=== PATIENT | female | born 1980 | race Caucasian/White ===

== ENCOUNTER 2018-05-29 17:07 | Emergency (ER) | payer OTHER ==
[2018-05-29] MEDS ORDERED: Sodium Chloride 0.9% 10 ML Syringe FLUSH PRN (17:50)
[2018-05-29] MEDS ORDERED: Ketorolac 30 MG/ML SDV IVPUSH ONE (17:50)
[2018-05-29] MEDS ORDERED: Alum Hydrox/Mag Hydrox/Simeth 30 ML, Lidocaine 2% 15 ML PO ONE ×2 (17:51)
--- NOTE | 2018-05-29 17:53 | EDM.PDOC ---
ED HPI GENERAL MEDICAL PROBLEM - General Chief Complaint: Chest Pain Stated Complaint: HIGH BLOOD PRESSURE/CHEST PAIN Time Seen by Provider: 05/29/18 17:27 Source of Information: Reports: Patient History Limitations: Reports: No Limitations - History of Present Illness INITIAL COMMENTS - FREE TEXT/NARRATIVE: 37-year-old incarcerated female with a history of schizophrenia and methamphetamine IV drug use. Presents to the ED complaining of substernal chest discomfort worse with taking a deep breath and movement. States this started earlier today with reading a book. States with worrying the discomfort worsened and radiated to her upper back. Symptoms have almost completely resolved with admission to the ED. States that at time she's had some dizziness to which she relates to her high blood pressure and increased worrying. She's had a headache described as frontal bilateral retro-orbital with no vision changes. Headache was gradual with onset. No cough, sinus congestion, SOB, sore throat, and stiff neck. No abdominal pain. No pain with urination. No diarrhea or blood in her stool. No nausea or vomiting. She has no rash present. She has a history of hepatitis C which is chronic for the past 20 years. She's been incarcerated for the past 2 months last used methamphetamines 10 months ago. She denies any complaints at this time. States earlier today she had temperature 100.7 did not receive any meds. She was afebrile with admission. Blood pressure is quite elevated 199/105 with admission but the patient was quite anxious per nursing staff. ON examination patients BP is 169/95. Chest Pain Score (Numeric/FACES): 3 Headache Pain Score (Numeric/FACES): 7 - Related Data Allergies Allergy/AdvReac Type Severity Reaction Status Date / Time No Known Allergies Allergy Verified 05/29/18 17:16 Home Meds: Home Meds Escitalopram [Lexapro] 10 mg PO DAILY 05/29/18 [History] Omeprazole Magnesium [Prilosec Otc] 40 mg PO QAM #28 tablet. 05/29/18 [Rx] QUEtiapine Fumarate [Seroquel] 50 mg PO BEDTIME 05/29/18 [History] risperiDONE [Risperdal] 0.5 mg PO BID 05/29/18 [History] Past Medical History Psychiatric History: Reports: Anxiety, Depression, PTSD, Schizophrenia - Infectious Disease History Infectious Disease History: Reports: Hepatitis C Social & Family History - Tobacco Use Smoking Status *Q: Former Smoker Years of Tobacco use: 23 Packs/Tins Daily: 1 Used Tobacco, but Quit: Yes Month/Year Tobacco Last Used: nay - Recreational Drug Use Recreational Drug Use: Yes Drug Use in Last 12 Months: Yes Recreational Drug Type: Reports: Methamphetamine ED ROS GENERAL - Review of Systems Review Of Systems: ROS reveals no pertinent complaints other than HPI. ED EXAM, GENERAL - Physical Exam Exam: See Below Exam Limited By: No Limitations General Appearance: Alert, WD/WN, No Apparent Distress Eye Exam: Bilateral Eye: EOMI, Normal Inspection, PERRL Ears: Hearing Grossly Normal Nose: Normal Inspection, Normal Mucosa, No Blood Throat/Mouth: Normal Inspection, Normal Voice, No Airway Compromise Neck: Normal Inspection, Supple, Non-Tender, Full Range of Motion Respiratory/Chest: No Respiratory Distress, Lungs Clear, Normal Breath Sounds, No Accessory Muscle Use, Chest Non-Tender Cardiovascular: Normal Peripheral Pulses, Regular Rate, Rhythm, No Murmur ( Obvious) Peripheral Pulses: 2+: Radial (L), Radial (R) GI/Abdominal: Normal Bowel Sounds, Soft, Non-Tender, No Organomegaly, No Distention Back Exam: Normal Inspection Extremities: Normal Inspection, Normal Range of Motion, Non-Tender, No Pedal Edema, Normal Capillary Refill Neurological: Alert, Oriented, CN II-XII Intact, Normal Cognition, No Motor/ Sensory Deficits Psychiatric: Normal Affect, Normal Mood Skin Exam: Warm, Dry, Intact, Normal Color Course - Vital Signs Last Recorded V/S: Last Vital Signs Temp 98.8 F 05/29/18 17:18 Pulse 73 05/29/18 17:18 Resp 18 05/29/18 17:18 BP 199/105 H 05/29/18 17:18 Pulse Ox 100 05/29/18 17:18 - Orders/Labs/Meds Orders: Active Orders 24 hr Category Date Time Status EKG Documentation Completion [RC] STAT Care 05/29/18 17:50 Active Peripheral IV Care [RC] . DIRECTED Care 05/29/18 17:50 Active Chest 1V Frontal [CR] Stat Exams 05/29/18 17:50 Taken HCG QUALITATIVE,URINE [URCHEM] Stat Lab 05/29/18 17:50 Ordered Peripheral IV Insertion Adult [OM.PC] Routine Oth 05/29/18 17:50 Ordered Labs: Laboratory Tests 05/29/18 05/29/18 05/29/18 Range/Units 17:50 17:50 18:15 WBC 7.29 (3.98-10.04) K/mm3 RBC 4.59 (3.98-5.22) M/mm3 Hgb 14.1 (11.2-15.7) gm/L Hct 41.0 (34.1-44.9) % MCV 89.3 (79.4-94.8) fl MCH 30.7 (25.6-32.2) pg MCHC 34.4 (32.2-35.5) g/dl RDW Std Deviation 40.9 (36.4-46.3) fL Plt Count 179 L (182-369) K/mm3 MPV 9.7 (9.4-12.3) fl Neutrophils % (Manual) 78 H (40-60) % Band Neutrophils % 0 (0-10) % Lymphocytes % (Manual) 18 L (20-40) % Atypical Lymphs % 0 % Monocytes % (Manual) 3 (2-10) % Eosinophils % (Manual) 1 (0.7-5.8) % Basophils % (Manual) 0 L (0.1-1.2) Toxic Granulation Few Platelet Estimate Adequate RBC Morph Comment Normal Sodium (136-145) mEq/L Potassium (3.5-5.1) mEq/L Chloride (98-107) mEq/L Carbon Dioxide (21-32) mEq/L Anion Gap (5-15) BUN (7-18) mg/dL Creatinine (0.55-1.02) mg/dL Est Cr Clr Drug Dosing mL/min Estimated GFR (MDRD) (>60) mL/min BUN/Creatinine Ratio (14-18) Glucose (74-106) mg/dL Calcium (8.5-10.1) mg/dL Total Bilirubin (0.2-1.0) mg/dL AST (15-37) U/L ALT (14-59) U/L Alkaline Phosphatase (46-116) U/L Troponin I (0.00-0.056) ng/mL C-Reactive Protein (<1.0) mg/dL Total Protein (6.4-8.2) g/dl Albumin (3.4-5.0) g/dl Globulin gm/dL Albumin/Globulin Ratio (1-2) Urine Color Yellow (Yellow) Urine Appearance Clear (Clear) Urine pH 7.5 (5.0-8.0) Ur Specific [place] 1.015 (1.005-1.030) Urine Protein Negative (Negative) Urine Glucose (UA) Negative (Negative) Urine Ketones Negative (Negative) Urine Occult Blood Negative (Negative) Urine Nitrite Negative (Negative) Urine Bilirubin Negative (Negative) Urine Urobilinogen 0.2 (0.2-1.0) Ur Leukocyte Esterase Trace H (Negative) Urine RBC 0-5 (0-5) /hpf Urine WBC 0-5 (0-5) /hpf Ur Epithelial Cells 0-5 (0-5) /hpf Urine Bacteria Occasional (FEW) /hpf Urine Mucus Not seen (FEW) /hpf Urine HCG, Qual Negative (NEGATIVE) 05/29/18 05/29/18 Range/Units 18:15 18:15 WBC (3.98-10.04) K/mm3 RBC (3.98-5.22) M/mm3 Hgb (11.2-15.7) gm/L Hct (34.1-44.9) % MCV (79.4-94.8) fl MCH (25.6-32.2) pg MCHC (32.2-35.5) g/dl RDW Std Deviation (36.4-46.3) fL Plt Count (182-369) K/mm3 MPV (9.4-12.3) fl Neutrophils % (Manual) (40-60) % Band Neutrophils % (0-10) % Lymphocytes % (Manual) (20-40) % Atypical Lymphs % % Monocytes % (Manual) (2-10) % Eosinophils % (Manual) (0.7-5.8) % Basophils % (Manual) (0.1-1.2) Toxic Granulation Platelet Estimate RBC Morph Comment Sodium 142 (136-145) mEq/L Potassium 3.7 (3.5-5.1) mEq/L Chloride 105 (98-107) mEq/L Carbon Dioxide 27 (21-32) mEq/L Anion Gap 13.7 (5-15) BUN 15 (7-18) mg/dL Creatinine 0.8 (0.55-1.02) mg/dL Est Cr Clr Drug Dosing 92.72 mL/min Estimated GFR (MDRD) > 60 (>60) mL/min BUN/Creatinine Ratio 18.8 H (14-18) Glucose 105 (74-106) mg/dL Calcium 8.7 (8.5-10.1) mg/dL Total Bilirubin 0.4 (0.2-1.0) mg/dL AST 31 (15-37) U/L ALT 49 (14-59) U/L Alkaline Phosphatase 46 (46-116) U/L Troponin I < 0.017 (0.00-0.056) ng/mL C-Reactive Protein < 0.2 (<1.0) mg/dL Total Protein 7.8 (6.4-8.2) g/dl Albumin 4.1 (3.4-5.0) g/dl Globulin 3.7 gm/dL Albumin/Globulin Ratio 1.1 (1-2) Urine Color (Yellow) Urine Appearance (Clear) Urine pH (5.0-8.0) Ur Specific [place] (1.005-1.030) Urine Protein (Negative) Urine Glucose (UA) (Negative) Urine Ketones (Negative) Urine Occult Blood (Negative) Urine Nitrite (Negative) Urine Bilirubin (Negative) Urine Urobilinogen (0.2-1.0) Ur Leukocyte Esterase (Negative) Urine RBC (0-5) /hpf Urine WBC (0-5) /hpf Ur Epithelial Cells (0-5) /hpf Urine Bacteria (FEW) /hpf Urine Mucus (FEW) /hpf Urine HCG, Qual (NEGATIVE) Meds: Medications Discontinued Medications Generic Name Dose Route Start Last Admin Trade Name Freq PRN Reason Stop Dose Admin Acetaminophen 975 mg 05/29/18 19:42 05/29/18 19:53 Tylenol PO 05/29/18 19:43 975 mg NOW ONE Administration Al Hydroxide/Mg Hydroxide 30 0 ml 05/29/18 17:51 05/29/18 18:03 ml/ Lidocaine HCl 15 ml PO 05/29/18 17:52 45 ml ONETIME ONE Administration Ketorolac Tromethamine 30 mg 05/29/18 17:50 05/29/18 18:28 Toradol IVPUSH 05/29/18 17:51 30 mg ONETIME ONE Administration Sodium Chloride 10 ml 05/29/18 17:50 Saline Flush FLUSH ASDIRECTED PRN Keep Vein Open - Re-Assessments/Exams Free Text/Narrative Re-Assessment/Exam: IV established with Toradol 30 mg IVP. GI cocktail ordered. Initial labs and studies will include: HCG, CBC, CMP, CRP, and UA. Chest x-ray and EKG will be obtained. Labs reviewed: CBC essentially normal minus low platelet count of 179. She panel was essentially normal. CRP within normal limits. UA negative. HCG negative. Chest x-ray was essentially normal. Reviewed with Dr. Hernandez. EKG sinus rhythm at a rate of 72. New Q wave in leads V1 and V2. Consider old anterior septal [place]. QT borderline prolonged. No signs of ischemia. Troponin was negative. Reassessment, patient's feeling better. All chest discomfort and GI symptoms have resolved. Suspect patients chest discomfort may have been associated to acid reflux and/or chest wall in origin. She admits pain had worsened with taking a deep breath. Pain was relieved with the gi cocktail/toradol. CP discomfort not worse with exertion. Headache persists. Ordered Tylenol and 975 mg by mouth. She is ready be discharged home.The patient remained hemodynamically stable while under my care in the E.D. I discussed the concerning symptoms for which to return to the E.D. with the patient. The patient verbalized understanding. All questions were answered. Departure - Departure Time of Disposition: 20:27 Disposition: Home, Self-Care 01 Condition: Good Clinical Impression: Chest wall pain, Atypical chest pain, Paroxysmal supraventricular tachycardia HTN (hypertension) Qualifiers: Hypertension type: unspecified Qualified Code(s): I10 - Essential (primary) hypertension Headache Qualifiers: Headache type: unspecified Headache chronicity pattern: episodic headache Intractability: not intractable Qualified Code(s): R51 - Headache Prescriptions: Omeprazole Magnesium [Prilosec Otc] 40 mg PO QAM #28 tablet. Instructions: Chest Wall Pain, [id number], Hypertension, [id number] Referrals: Lizbeth Blanca PA-C [Primary Care Provider] - Forms: ED Department Discharge Additional Instructions: Blood pressure was elevated with admission to the E.D. Decreased over a short period of time. I suspect headache may have been contributed as the result of the hypertension. Continue have your blood pressures checked regularly by clinic staff. Take all your medications as prescribed. Modification of medications may be required and or starting you on a blood pressure medication maybe of benefit. Chest wall discomfort was relieved with a GI cocktail. Suspect this more likely related to gastritis/esophagitis. Thus will have you take Prilosec 40 mg every day for the next 2 weeks. Refrain from any spicy foods , caffeinated beverages, coffee, chocolate, eating or drinking within 4 hours of going to bed. Please monitor for any new or worsening symptoms. Follow-up with clinic provider for reevaluation. Return to the ED if you develop any new or worsening symptoms. - My Orders Last 24 Hours: My Active Orders 05/29/18 17:50 EKG Documentation Completion [RC] STAT Peripheral IV Care [RC] . DIRECTED Chest 1V Frontal [CR] Stat HCG QUALITATIVE,URINE [URCHEM] Stat Peripheral IV Insertion Adult [OM.PC] Routine - Assessment/Plan Last 24 Hours: My Active Orders 05/29/18 17:50 EKG Documentation Completion [RC] STAT Peripheral IV Care [RC] . DIRECTED Chest 1V Frontal [CR] Stat HCG QUALITATIVE,URINE [URCHEM] Stat Peripheral IV Insertion Adult [OM.PC] Routine
[2018-05-29] MEDS ORDERED: Acetaminophen 325 MG Tab PO ONE (19:42)
--- NOTE | 2018-06-01 09:14 | CR ---
Chest: Portable view of the chest was obtained. Comparison: No prior chest x-ray. Heart size and mediastinum are within normal limits. Lungs are clear without acute parenchymal change. Bony structures are grossly intact. Impression: 1. Nothing acute is seen on portable chest x-ray. Diagnostic code #1
== END 2018-05-29 20:45 | disposition home or self-care (01) ==
LOC: JD.ED 17:07
DX: R07.2 Precordial pain (principal); I47.1 Supraventricular tachycardia; I10 Essential (primary) hypertension; F20.9 Schizophrenia, unspecified; F41.9 Anxiety disorder, unspecified; F32.9 Major depressive disorder, single episode, unspecified; Z87.891 Personal history of nicotine dependence; Z79.899 Other long term (current) drug therapy
CPT/HCPCS: 36415; 71045; 80053; 81001; 81025; 84484; 85007; 85027; 86140; 93005; 96374; 99285; A9270; J1885; 93010; 99284

== ENCOUNTER 2018-10-26 19:30 | Emergency (ER) | payer OTHER ==
[2018-10-26] MEDS ORDERED: Sodium Chloride 0.9% 10 ML Syringe FLUSH PRN (19:45)
[2018-10-26] MEDS ORDERED: Sodium Chloride 0.9% 1,000 ML IV SCH (19:45)
[2018-10-26] MEDS ORDERED: Ondansetron 4 MG/2 ML SDV IVPUSH ONE (19:53)
--- NOTE | 2018-10-26 20:43 | EDM.PDOCBH ---
ED HPI GENERAL MEDICAL PROBLEM - General Chief Complaint: Drug or Alcohol Abuse Stated Complaint: SENT [facility]IC[facility] Time Seen by Provider: 10/26/18 19:36 Source of Information: Reports: Patient History Limitations: Reports: No Limitations - History of Present Illness INITIAL COMMENTS - FREE TEXT/NARRATIVE: The patient presents because of a tylenol overdose. She is an inmate at the [facility] in [place]. She was feeling depressed. She took them tonight in a suicide attempt. She has been waiting for some therapy and it was delayed so she took the pills. She took 15 to 20 extra strength tylenol that are 500mgs. She has some nausea now. She has no fever, chills, cough, congestion, runny nose, chest pain or shortness of breath. She took the meds at 7pm. She did overdose last month on the . She does have depression and schizophrenia. Onset: Sudden Duration: Minutes: (7pm tonight) Severity: Moderate Improves with: Reports: None Worsens with: Reports: None Associated Symptoms: Reports: Nausea/Vomiting. Denies: Chest Pain, Cough, Fever /Chills, Headaches, Shortness of Breath - Related Data Allergies Allergy/AdvReac Type Severity Reaction Status Date / Time erythromycin base Allergy Hives Verified 10/26/18 19:37 Home Meds: Home Meds QUEtiapine Fumarate [Seroquel] 50 mg PO BEDTIME 05/29/18 [History] risperiDONE [Risperdal] 5 mg PO BEDTIME 05/29/18 [History] FLUoxetine HCl [Prozac] 20 mg PO BEDTIME 09/21/18 [History] Ibuprofen [Ibu] 600 mg PO TID PRN 09/21/18 [History] Omeprazole Magnesium [Prilosec Otc] 20 mg PO QAM 09/21/18 [History] Bisacodyl [Dulcolax] 10 mg PO DAILY PRN 10/26/18 [History] Magnesium Citrate [Citrate of Magnesia] 1 dose PO ASDIRECTED PRN 10/26/18 [ History] Magnesium Hydroxide [Milk of Magnesia] 30 ml PO ASDIRECTED PRN 10/26/18 [History ] Past Medical History Psychiatric History: Reports: Anxiety, Depression, PTSD, Schizophrenia, Suicide Attempt, Suicidal Ideation - Infectious Disease History Infectious Disease History: Reports: Hepatitis C Social & Family History - Tobacco Use Smoking Status *Q: Former Smoker Packs/Tins Daily: 1 Used Tobacco, but Quit: Yes Month/Year Tobacco Last Used: 2 years ago - Caffeine Use Caffeine Use: Reports: Coffee - Recreational Drug Use Recreational Drug Use: Yes Drug Use in Last 12 Months: No Recreational Drug Type: Reports: Methamphetamine ED ROS GENERAL - Review of Systems Review Of Systems: See Below Constitutional: Reports: No Symptoms HEENT: Reports: No Symptoms Respiratory: Reports: No Symptoms Cardiovascular: Reports: No Symptoms Endocrine: Reports: No Symptoms GI/Abdominal: Reports: Nausea. Denies: Abdominal Pain, Diarrhea, Vomiting : Reports: No Symptoms Musculoskeletal: Reports: No Symptoms Skin: Reports: No Symptoms ED EXAM, BEHAVIORAL HEALTH - Physical Exam Exam: See Below Exam Limited By: No Limitations General Appearance: Alert, No Apparent Distress Ears: Normal External Exam Nose: Normal Inspection Head: Atraumatic, Normocephalic Neck: Normal Inspection Respiratory/Chest: No Respiratory Distress, Lungs Clear, Normal Breath Sounds Cardiovascular: Regular Rate, Rhythm, No Edema, No Murmur GI/Abdominal: Soft, Non-Tender, No Organomegaly, No Mass Back Exam: Normal Inspection EKG INTERPRETATION EKG Date: 10/26/18 Time: 19:59 Rhythm: NSR Rate (Beats/Min): 78 [place]: Normal P-Wave: Present QRS: Normal ST-T: Normal QT: Normal COURSE, BEHAVIORAL HEALTH COMP - Course Vital Signs: Last Vital Signs Temp 98.2 F 10/26/18 19:35 Pulse 80 10/26/18 19:35 Resp 16 10/26/18 19:35 BP 188/102 H 10/26/18 19:35 Pulse Ox 100 10/26/18 19:35 Orders, Labs, Meds: Active Orders 24 hr Category Date Time Status Cardiac Monitoring [RC] . DIRECTED Care 10/26/18 19:45 Active EKG Documentation Completion [RC] ASDIRECTED Care 10/26/18 19:49 Active Peripheral IV Care [RC] . DIRECTED Care 10/26/18 19:48 Active Sodium Chloride 0.9% [Normal Saline] 1,000 ml Med 10/26/18 19:45 Active IV ASDIRECTED Sodium Chloride 0.9% [Saline Flush] Med 10/26/18 19:45 Active 10 ml FLUSH ASDIRECTED PRN Peripheral IV Insertion Adult [OM.PC] Stat Oth 01/24/19 19:45 Ordered EKG 12 Lead [EK] Stat Ther 10/26/18 19:48 Ordered Medication Orders Sodium Chloride (Normal Saline) 1,000 mls @ 125 mls/hr IV ASDIRECTED ARTUR Last Admin: 10/26/18 20:11 Dose: 125 mls/hr Sodium Chloride (Saline Flush) 10 ml FLUSH ASDIRECTED PRN PRN Reason: Keep Vein Open Last Admin: 10/26/18 20:12 Dose: 10 ml Laboratory Tests 10/26/18 10/26/18 10/26/18 Range/Units 20:20 20:20 20:20 WBC 5.83 (3.98-10.04) K/mm3 RBC 4.00 (3.98-5.22) M/mm3 Hgb 12.4 (11.2-15.7) gm/L Hct 37.7 (34.1-44.9) % MCV 94.3 (79.4-94.8) fl MCH 31.0 (25.6-32.2) pg MCHC 32.9 (32.2-35.5) g/dl RDW Std Deviation 43.9 (36.4-46.3) fL Plt Count 214 (182-369) K/mm3 MPV 9.9 (9.4-12.3) fl Neut % (Auto) 65.0 (34.0-71.1) % Lymph % (Auto) 25.7 (19.3-51.7) % [place] % (Auto) 7.4 (4.7-12.5) % Eos % (Auto) 1.7 (0.7-5.8) Baso % (Auto) 0.2 (0.1-1.2) % Neut # (Auto) 3.79 (1.56-6.13) K/mm3 Lymph # (Auto) 1.50 (1.18-3.74) K/mm3 [place] # (Auto) 0.43 H (0.24-0.36) K/mm3 Eos # (Auto) 0.10 (0.04-0.36) K/mm3 Baso # (Auto) 0.01 (0.01-0.08) K/mm3 Sodium 141 (136-145) mEq/L Potassium 3.7 (3.5-5.1) mEq/L Chloride 106 (98-107) mEq/L Carbon Dioxide 26 (21-32) mEq/L Anion Gap 12.7 (5-15) BUN 17 (7-18) mg/dL Creatinine 0.8 (0.55-1.02) mg/dL Est Cr Clr Drug Dosing 95.24 mL/min Estimated GFR (MDRD) > 60 (>60) mL/min BUN/Creatinine Ratio 21.3 H (14-18) Glucose 126 H (74-106) mg/dL Calcium 9.2 (8.5-10.1) mg/dL Total Bilirubin 0.2 (0.2-1.0) mg/dL AST 26 (15-37) U/L ALT 38 (14-59) U/L Alkaline Phosphatase 39 L (46-116) U/L Total Protein 7.7 (6.4-8.2) g/dl Albumin 4.2 (3.4-5.0) g/dl Globulin 3.5 gm/dL Albumin/Globulin Ratio 1.2 (1-2) Salicylates 1.3 L (2.8-20) mg/dL Urine Opiates Screen (PCNPRO=871) Ur Buprenorphine Scrn (CUTOFF=10) Ur Oxycodone Screen (XYX9TE=786) Urine Methadone Screen (LBYZVR=709) Ur Propoxyphene Screen (QYNPRQ=216) Acetaminophen 101 H (10-30) ug/mL Ur Barbiturates Screen (AFNZQJ=476) Ur Tricyclics Screen (LWZRYF=451) Ur Phencyclidine Scrn (CUTOFF=25) Ur Amphetamine Screen (FZVCHK=782) U Methamphetamines Scrn (KMNKXW=473) U Benzodiazepines Scrn (JFKWXL=435) U Cocaine Metab Screen (VGSIXF=878) U Marijuana (THC) Screen (CUTOFF=50) Ethyl Alcohol 0.00 (0.00) gm% 10/26/18 10/26/18 Range/Units 22:14 23:35 WBC (3.98-10.04) K/mm3 RBC (3.98-5.22) M/mm3 Hgb (11.2-15.7) gm/L Hct (34.1-44.9) % MCV (79.4-94.8) fl MCH (25.6-32.2) pg MCHC (32.2-35.5) g/dl RDW Std Deviation (36.4-46.3) fL Plt Count (182-369) K/mm3 MPV (9.4-12.3) fl Neut % (Auto) (34.0-71.1) % Lymph % (Auto) (19.3-51.7) % [place] % (Auto) (4.7-12.5) % Eos % (Auto) (0.7-5.8) Baso % (Auto) (0.1-1.2) % Neut # (Auto) (1.56-6.13) K/mm3 Lymph # (Auto) (1.18-3.74) K/mm3 [place] # (Auto) (0.24-0.36) K/mm3 Eos # (Auto) (0.04-0.36) K/mm3 Baso # (Auto) (0.01-0.08) K/mm3 Sodium (136-145) mEq/L Potassium (3.5-5.1) mEq/L Chloride (98-107) mEq/L Carbon Dioxide (21-32) mEq/L Anion Gap (5-15) BUN (7-18) mg/dL Creatinine (0.55-1.02) mg/dL Est Cr Clr Drug Dosing mL/min Estimated GFR (MDRD) (>60) mL/min BUN/Creatinine Ratio (14-18) Glucose (74-106) mg/dL Calcium (8.5-10.1) mg/dL Total Bilirubin (0.2-1.0) mg/dL AST (15-37) U/L ALT (14-59) U/L Alkaline Phosphatase (46-116) U/L Total Protein (6.4-8.2) g/dl Albumin (3.4-5.0) g/dl Globulin gm/dL Albumin/Globulin Ratio (1-2) Salicylates (2.8-20) mg/dL Urine Opiates Screen Negative (FVQQQL=579) Ur Buprenorphine Scrn Negative (CUTOFF=10) Ur Oxycodone Screen Negative (FOE9OC=537) Urine Methadone Screen Negative (IRRWYL=614) Ur Propoxyphene Screen Negative (WJOIAB=836) Acetaminophen 45 H (10-30) ug/mL Ur Barbiturates Screen Negative (VTDUNC=178) Ur Tricyclics Screen Negative (AAEBDI=165) Ur Phencyclidine Scrn Negative (CUTOFF=25) Ur Amphetamine Screen Negative (EWJKFI=843) U Methamphetamines Scrn Negative (FWHIEX=697) U Benzodiazepines Scrn Negative (TEUEPM=084) U Cocaine Metab Screen Negative (SFRAXC=909) U Marijuana (THC) Screen Negative (CUTOFF=50) Ethyl Alcohol (0.00) gm% Medications Generic Name Dose Route Start Last Admin Trade Name Freq PRN Reason Stop Dose Admin Sodium Chloride 1,000 mls @ 125 mls/hr 10/26/18 19:45 10/26/18 20:11 Normal Saline IV 125 mls/hr ASDIRECTED ARTUR Administration Sodium Chloride 10 ml 10/26/18 19:45 10/26/18 20:12 Saline Flush FLUSH 10 ml ASDIRECTED PRN Administration Keep Vein Open Discontinued Medications Generic Name Dose Route Start Last Admin Trade Name Freq PRN Reason Stop Dose Admin Ondansetron HCl 4 mg 10/26/18 19:53 10/26/18 20:11 Zofran IVPUSH 10/26/18 19:54 4 mg ONETIME ONE Administration Quetiapine Fumarate 50 mg 10/26/18 21:51 10/26/18 21:57 Seroquel PO 10/26/18 21:52 50 mg ONETIME ONE Administration Re-Assessment/Re-Exam: I ordered an IV NS 1L bolus, zofran 4mg IV, EKG, and labs. I called poison control and they wanted me to check an acetaminophen level at 11pm. I will check it then also. Her CBC look good. Her glucose was elevated at 126. Her liver enzymes were normal. Her acetaminophen level initially was 101. The second one was 45. That is at 4 hours and that is well below the toxic level of 150 at 4 hours. I called poison control back and they said she would be safe for discharge. Her salicylate level was normal. I will discharge her home. Departure - Departure Time of Disposition: 01:10 Disposition: Home, Self-Care 01 Condition: Good Clinical Impression: Suicidal ideation Tylenol overdose Qualifiers: Encounter type: initial encounter Injury intent: intentional self-harm Qualified Code(s): T39.1X2A - Poisoning by 4-Aminophenol derivatives, intentional self-harm, initial encounter - Discharge Information *PRESCRIPTION DRUG MONITORING PROGRAM REVIEWED*: No *COPY OF PRESCRIPTION DRUG MONITORING REPORT IN PATIENT BENJAMIN: No Referrals: PCP,None [Primary Care Provider] - Additional Instructions: Take your prescription medications as prescribed. Please return if you are worse. - My Orders Last 24 Hours: My Active Orders 10/26/18 19:45 Cardiac Monitoring [RC] . DIRECTED Sodium Chloride 0.9% [Normal Saline] 1,000 ml IV ASDIRECTED Sodium Chloride 0.9% [Saline Flush] 10 ml FLUSH ASDIRECTED PRN Peripheral IV Insertion Adult [OM.PC] Stat 10/26/18 19:48 Peripheral IV Care [RC] . DIRECTED EKG 12 Lead [EK] Stat 10/26/18 19:49 EKG Documentation Completion [RC] ASDIRECTED - Assessment/Plan Last 24 Hours: My Active Orders 10/26/18 19:45 Cardiac Monitoring [RC] . DIRECTED Sodium Chloride 0.9% [Normal Saline] 1,000 ml IV ASDIRECTED Sodium Chloride 0.9% [Saline Flush] 10 ml FLUSH ASDIRECTED PRN Peripheral IV Insertion Adult [OM.PC] Stat 10/26/18 19:48 Peripheral IV Care [RC] . DIRECTED EKG 12 Lead [EK] Stat 10/26/18 19:49 EKG Documentation Completion [RC] ASDIRECTED
[2018-10-26 20:44] LABS: ACETAMINOPHEN 101 ug/mL (10-30)
[2018-10-26] MEDS ORDERED: QUEtiapine 25 MG Tab PO ONE (21:51)
== END 2018-10-27 01:15 | disposition home or self-care (01) ==
LOC: JD.ED 19:30
DX: T39.1X2A Poisoning by 4-Aminophenol derivatives, intentional self-harm, initial encounter (principal); F41.9 Anxiety disorder, unspecified; F32.9 Major depressive disorder, single episode, unspecified; Z87.891 Personal history of nicotine dependence; Z88.1 Allergy status to other antibiotic agents; Z79.899 Other long term (current) drug therapy
CPT/HCPCS: 36415; 80053; 80306; 85025; 93005; 96361; 96374; 99285; A9270; G0480; J2405; J7040; 93010; 99284

== ENCOUNTER 2018-11-11 20:39 | Emergency (ER) | payer OTHER ==
--- NOTE | 2018-11-11 21:01 | EDM.PDOC ---
ED HPI GENERAL MEDICAL PROBLEM - General Chief Complaint: General Stated Complaint: OD ON TYLENOL Time Seen by Provider: 11/11/18 20:52 Source of Information: Reports: Patient, Other (marketing officer) History Limitations: Reports: No Limitations - History of Present Illness INITIAL COMMENTS - FREE TEXT/NARRATIVE: This is a 38-year-old female. [facility] [place] She states she took an overdose at 7:30 PM of Tylenol she took 20 tablets of 500 mg. She did this about a week ago and she says that she got the Tylenol this time from another inmate who treated her for coffee. The patient states she is a little queasy but she did not vomit. Due to the fact that she just took the overdose 45 minutes ago I will put down an NG tube and do a gastric lavage to see if we can't get portions of the Tylenol and then will use activated charcoal. I explained to the patient that this is not a desirable way to if that's what she wants to do. She says she is schizophrenic and is the voices inside her head that are telling her to kill herself. She says she takes her medications for the schizophrenia faithfully. She denies any other acute problems or physical symptoms. This would correlate to 135 mg/kg. According to the reference 150 mg/kg is considered toxic limit but we will continue to monitor her levels at 4 hours and determine if she needs full therapy with acetylcysteine. - Related Data Allergies Allergy/AdvReac Type Severity Reaction Status Date / Time erythromycin base Allergy Hives Verified 11/11/18 20:52 Home Meds: Home Meds QUEtiapine Fumarate [Seroquel] 50 mg PO BEDTIME 05/29/18 [History] risperiDONE [Risperdal] 5 mg PO BEDTIME 05/29/18 [History] FLUoxetine HCl [Prozac] 20 mg PO BEDTIME 09/21/18 [History] Omeprazole Magnesium [Prilosec Otc] 20 mg PO QAM 09/21/18 [History] Venlafaxine [Effexor XR] 37.5 mg PO BEDTIME 11/11/18 [History] Past Medical History Psychiatric History: Reports: Anxiety, Depression, PTSD, Schizophrenia, Suicide Attempt, Suicidal Ideation - Infectious Disease History Infectious Disease History: Reports: Hepatitis C Social & Family History - Tobacco Use Smoking Status *Q: Former Smoker Used Tobacco, but Quit: Yes Month/Year Tobacco Last Used: 2 years ago - Caffeine Use Caffeine Use: Reports: Coffee - Recreational Drug Use Recreational Drug Use: Yes Drug Use in Last 12 Months: No Recreational Drug Type: Reports: Methamphetamine ED ROS GENERAL - Review of Systems Review Of Systems: See Below Constitutional: Denies: Fever, Chills HEENT: Reports: No Symptoms Respiratory: Denies: Shortness of Breath, Cough Cardiovascular: Denies: Chest Pain Endocrine: Reports: No Symptoms GI/Abdominal: Reports: Nausea. Denies: Abdominal Pain, Diarrhea, Vomiting : Reports: No Symptoms Musculoskeletal: Reports: No Symptoms Skin: Reports: No Symptoms Neurological: Reports: No Symptoms Psychiatric: Reports: Other (Patient is schizophrenic and states she has auditory hallucinations that are telling her to kill herself) Hematologic/Lymphatic: Reports: No Symptoms ED EXAM, GENERAL - Physical Exam Exam: See Below Exam Limited By: No Limitations General Appearance: Alert, WD/WN, No Apparent Distress Eye Exam: Bilateral Eye: Normal Inspection Ears: Normal External Exam Nose: Normal Inspection Throat/Mouth: Normal Inspection, Normal Lips, Normal Voice, No Airway Compromise Head: Normocephalic Neck: Supple Respiratory/Chest: No Respiratory Distress, Lungs Clear, Normal Breath Sounds Cardiovascular: Regular Rate, Rhythm, No Murmur GI/Abdominal: Soft, Non-Tender. No: Guarding, Rigid, Rebound Back Exam: Full Range of Motion Extremities: Normal Inspection, Normal Range of Motion, Other (Patient is in handcuffs and feet cuffs) Neurological: Alert, Oriented, Other (Slow cognition) Psychiatric: Flat Affect Skin Exam: Warm, Dry Course - Vital Signs Last Recorded V/S: Last Vital Signs Temp 98.4 F 11/11/18 20:47 Pulse 92 11/11/18 20:47 Resp 16 11/11/18 20:47 BP 181/112 H 11/11/18 20:47 Pulse Ox 98 11/11/18 20:47 - Orders/Labs/Meds Orders: Active Orders 24 hr Category Date Time Status Communication Order [RC] STAT Care 11/11/18 20:54 Active Labs: Laboratory Tests 11/11/18 11/11/18 11/11/18 Range/Units 21:20 21:20 21:20 WBC 6.17 (3.98-10.04) K/mm3 RBC 3.81 L (3.98-5.22) M/mm3 Hgb 12.0 (11.2-15.7) gm/L Hct 36.5 (34.1-44.9) % MCV 95.8 H (79.4-94.8) fl MCH 31.5 (25.6-32.2) pg MCHC 32.9 (32.2-35.5) g/dl RDW Std Deviation 43.0 (36.4-46.3) fL Plt Count 192 (182-369) K/mm3 MPV 9.6 (9.4-12.3) fl Neut % (Auto) 65.6 (34.0-71.1) % Lymph % (Auto) 24.1 (19.3-51.7) % [place] % (Auto) 7.5 (4.7-12.5) % Eos % (Auto) 2.1 (0.7-5.8) Baso % (Auto) 0.5 (0.1-1.2) % Neut # (Auto) 4.05 (1.56-6.13) K/mm3 Lymph # (Auto) 1.49 (1.18-3.74) K/mm3 [place] # (Auto) 0.46 H (0.24-0.36) K/mm3 Eos # (Auto) 0.13 (0.04-0.36) K/mm3 Baso # (Auto) 0.03 (0.01-0.08) K/mm3 PT (9.5-12.1) SECONDS INR Sodium 143 (136-145) mEq/L Potassium 3.7 (3.5-5.1) mEq/L Chloride 105 (98-107) mEq/L Carbon Dioxide 28 (21-32) mEq/L Anion Gap 13.7 (5-15) BUN 12 (7-18) mg/dL Creatinine 0.9 (0.55-1.02) mg/dL Est Cr Clr Drug Dosing 84.66 mL/min Estimated GFR (MDRD) > 60 (>60) mL/min BUN/Creatinine Ratio 13.3 L (14-18) Glucose 115 H (74-106) mg/dL Lactic Acid (0.4-2.0) mmol/L Calcium 8.8 (8.5-10.1) mg/dL Total Bilirubin 0.2 (0.2-1.0) mg/dL AST 17 (15-37) U/L ALT 24 (14-59) U/L Alkaline Phosphatase 43 L (46-116) U/L Total Protein 7.6 (6.4-8.2) g/dl Albumin 4.2 (3.4-5.0) g/dl Globulin 3.4 gm/dL Albumin/Globulin Ratio 1.2 (1-2) Salicylates 1.5 L (2.8-20) mg/dL Acetaminophen 134 H (10-30) ug/mL 11/11/18 11/11/18 11/11/18 Range/Units 21:20 21:20 23:30 WBC (3.98-10.04) K/mm3 RBC (3.98-5.22) M/mm3 Hgb (11.2-15.7) gm/L Hct (34.1-44.9) % MCV (79.4-94.8) fl MCH (25.6-32.2) pg MCHC (32.2-35.5) g/dl RDW Std Deviation (36.4-46.3) fL Plt Count (182-369) K/mm3 MPV (9.4-12.3) fl Neut % (Auto) (34.0-71.1) % Lymph % (Auto) (19.3-51.7) % [place] % (Auto) (4.7-12.5) % Eos % (Auto) (0.7-5.8) Baso % (Auto) (0.1-1.2) % Neut # (Auto) (1.56-6.13) K/mm3 Lymph # (Auto) (1.18-3.74) K/mm3 [place] # (Auto) (0.24-0.36) K/mm3 Eos # (Auto) (0.04-0.36) K/mm3 Baso # (Auto) (0.01-0.08) K/mm3 PT 11.1 (9.5-12.1) SECONDS INR 1.02 Sodium (136-145) mEq/L Potassium (3.5-5.1) mEq/L Chloride (98-107) mEq/L Carbon Dioxide (21-32) mEq/L Anion Gap (5-15) BUN (7-18) mg/dL Creatinine (0.55-1.02) mg/dL Est Cr Clr Drug Dosing mL/min Estimated GFR (MDRD) (>60) mL/min BUN/Creatinine Ratio (14-18) Glucose (74-106) mg/dL Lactic Acid 1.2 (0.4-2.0) mmol/L Calcium (8.5-10.1) mg/dL Total Bilirubin (0.2-1.0) mg/dL AST (15-37) U/L ALT (14-59) U/L Alkaline Phosphatase (46-116) U/L Total Protein (6.4-8.2) g/dl Albumin (3.4-5.0) g/dl Globulin gm/dL Albumin/Globulin Ratio (1-2) Salicylates (2.8-20) mg/dL Acetaminophen 88 H (10-30) ug/mL Meds: Medications Discontinued Medications Generic Name Dose Route Start Last Admin Trade Name Macho PRN Reason Stop Dose Admin Charcoal/Sorbitol 50 gm 11/11/18 21:39 11/11/18 21:58 Insta-Nitza Sorbitol PO 11/11/18 21:40 50 gm ONETIME ONE Administration - Re-Assessments/Exams Free Text/Narrative Re-Assessment/Exam: 11/11/18 20:52 The patient comes in and states 45 minutes ago she took 20 - 500 mg Tylenols. She apparently treated it with another inmate [facility] the [facility] for coffee. She says she did not vomit afterwards she is feeling a little queasy now so I know she still has in her abdomen and I am hoping we can do 1000 mL gastric lavage with an NG tube and maybe suck most of it out. We will try this as well as get blood work. 11/12/18 00:00 I spoke to the patient and the ordnance officer. Her initial Tylenol level upon arrival to the ER was 135. At 4 hour from the ingestion of the Tylenol her level was 88 which is below the toxic limit. She just needs to drink lots of fluids and realize she is going to have some diarrhea from the activated charcoal that we gave her. I told the ordnance officer pleased to let everybody know that she should not have any access to Tylenol whatsoever again. Departure - Departure Time of Disposition: 00:01 Disposition: Home, Self-Care 01 Condition: Good Clinical Impression: Auditory hallucinations Tylenol ingestion Qualifiers: Encounter type: initial encounter Injury intent: intentional self-harm Qualified Code(s): T39.1X2A - Poisoning by 4-Aminophenol derivatives, intentional self-harm, initial encounter Schizophrenia Qualifiers: Schizophrenia type: unspecified Qualified Code(s): F20.9 - Schizophrenia, unspecified Suicide gesture Qualifiers: Encounter type: initial encounter Qualified Code(s): X83.8XXA - Intentional self-harm by other specified means, initial encounter - Discharge Information *PRESCRIPTION DRUG MONITORING PROGRAM REVIEWED*: Not Applicable *COPY OF PRESCRIPTION DRUG MONITORING REPORT IN PATIENT [place]JAM[place]: Not Applicable Referrals: Lizbeth Blanca PA-C [Primary Care Provider] - Forms: ED Department Discharge Additional Instructions: Make sure the patient drinks lots of fluids over the next 24 hours, please do not let her have access to Tylenol ever again, this is a must because one of these days she is going to take an overdose that is going to hurt her liver and possibly kill her, recheck with her family doctor later this week, return to the ER if needed - My Orders Last 24 Hours: My Active Orders 11/11/18 20:54 Communication Order [RC] STAT - Assessment/Plan Last 24 Hours: My Active Orders 11/11/18 20:54 Communication Order [RC] STAT
[2018-11-11] MEDS ORDERED: Activated Charcoal/Sorbitol Susp 50 GM/240 ML Bottle PO ONE (21:39)
[2018-11-11 21:46] LABS: ACETAMINOPHEN 134 ug/mL (10-30)
== END 2018-11-12 00:10 | disposition home or self-care (01) ==
LOC: JD.ED 20:39
DX: T39.1X2A Poisoning by 4-Aminophenol derivatives, intentional self-harm, initial encounter (principal); F41.9 Anxiety disorder, unspecified; F32.9 Major depressive disorder, single episode, unspecified; F20.9 Schizophrenia, unspecified; Z87.891 Personal history of nicotine dependence; Z88.1 Allergy status to other antibiotic agents
CPT/HCPCS: 36415; 80053; 83605; 85025; 85610; 99285; G0480